=== PATIENT | female | born 1975 | race Caucasian/White ===

== ENCOUNTER 2017-06-11 09:31 | Emergency (ER) | payer OTHER ==
[~2017-06-11] VITALS: Ht 162.6 cm; Wt 1004.3 kg
[~2017-06-11 09:31] MED LIST: NO TOMA MED.
[2017-06-11] MEDS ORDERED: SYNTHROID150 MCG (09:43)
[2017-06-11] MEDS ORDERED: KETO10TA2 PO (11:50)
[2017-06-11] MEDS ORDERED: VASOTEC5 MG PO (11:50)
== END 2017-06-11 12:20 | disposition home or self-care (01) ==
LOC: ER 09:31
DX: I10 Essential (primary) hypertension (principal); R00.2 Palpitations; G44.209 Tension-type headache, unspecified, not intractable

== ENCOUNTER 2018-04-02 20:20 | Emergency (ER) | payer OTHER ==
[~2018-04-02] VITALS: Ht 162.6 cm; Wt 97.5 kg
[~2018-04-02 20:20] MED LIST changes: +KETO10TA2 PO; +SYNTHROID150 MCG; +VASOTEC5 MG PO
[2018-04-02] MEDS ORDERED: ZYRTEC10 MG (20:27)
== END 2018-04-02 23:37 | disposition home or self-care (01) ==
LOC: ER 20:20
DX: O26.891 Other specified pregnancy related conditions, first trimester (principal); R10.2 Pelvic and perineal pain

== ENCOUNTER 2018-07-09 10:28 | Inpatient (IN) | payer OTHER ==
[~2018-07-09] VITALS: Ht 162.6 cm; Wt 107.0 kg
[~2018-07-09 10:28] MED LIST changes: +ZYRTEC10 MG
[2018-07-09] MEDS ORDERED: PRENATAL TABLE1 EACH PO (11:23)
[2018-07-09] MEDS ORDERED: LABETALOL HCL200 MG PO (11:23)
== END 2018-07-11 10:49 | DRG 833 ==
LOC: LDR 10:28
PROVIDERS: ADMIT Obstetrics & Gynecology Maternal & Fetal Medicine
DX: O13.2 Gestational [pregnancy-induced] hypertension without significant proteinuria, second trimester (principal); Z34.82 Encounter for supervision of other normal pregnancy, second trimester

== ENCOUNTER 2018-07-16 10:40 | Inpatient (IN) | payer OTHER ==
[~2018-07-16] VITALS: Ht 162.6 cm; Wt 107.0 kg
[~2018-07-16 10:40] MED LIST changes: +LABETALOL HCL200 MG PO; +PRENATAL TABLE1 EACH PO
[2018-07-16] MEDS ORDERED: SYNTHROID137 MCG PO (11:47)
[2018-07-16] MEDS ORDERED: ALDOMET250 MG/5 M PO (11:48)
== END 2018-07-20 09:29 | disposition home or self-care (01) | DRG 786 ==
LOC: LDR 10:40 → OB/GYN 07-17 11:43 → O/R 07-17 14:16 → LDR 07-17 16:47 → OB/GYN 07-18 09:49
PROVIDERS: ADMIT Obstetrics & Gynecology
PROC: 4A1HXCZ Monitoring of Products of Conception, Cardiac Rate, External Approach (ICD-10-PCS; 2018-07-17)
PROC: 10D00Z1 Extraction of Products of Conception, Low, Open Approach (ICD-10-PCS; principal; 2018-07-17 09:45)
DX: O82 Encounter for cesarean delivery without indication (principal); O60.13X0 Preterm labor second trimester with preterm delivery third trimester, not applicable or unspecified; O14.14 Severe pre-eclampsia complicating childbirth; Z3A.28 28 weeks gestation of pregnancy; Z37.0 Single live birth